=== PATIENT | male | born 1995 | race Caucasian/White ===

== ENCOUNTER → 2016-09-05 | Outpatient (CLI) | payer OTHER, BC ==
--- NOTE | 2016-09-05 15:41 | DIAGNOSTIC IMAGING REPORT ---
RIGHT FOOT MIN 3 VIEWS CLINICAL HISTORY: RIGHT 3RD METATARSAL FX Right COMPARISON STUDY: Right foot 06/05/2016. FINDINGS: Fractures at the bases of the second and third metatarsals. These demonstrate increased sclerosis consistent with healing. There is slight offset at the second tarsometatarsal joint which remains unchanged. No acute fractures identified. Soft tissues are unremarkable. IMPRESSION: Healing fractures at the bases of the second and third metatarsals. There is slight offset at the second tarsometatarsal joint which remains unchanged. Findings are consistent with a Lisfranc injury. Electronically signed by: Justo Penn M.D. 09/05/2016 3:39 PM
== END | disposition home or self-care (01) ==
LOC: C.RDSM 10:53
PROVIDERS: ATTEND Physical Medicine & Rehabilitation Sports Medicine
DX: S92.334D Nondisplaced fracture of third metatarsal bone, right foot, subsequent encounter for fracture with routine healing (principal); X58.XXXD Exposure to other specified factors, subsequent encounter